=== PATIENT | male | born 1990 | race Two or more races ===

== ENCOUNTER 2023-02-13 14:53 | Emergency (ER) | payer BC, SELFPAY ==
[2023-02-13 15:09] VITALS: BP 123/73; PULSE 81; RESP 16; TEMP 35.9; O2SAT 97; BMI 22.4
--- NOTE | 2023-02-13 15:09 | ED_ITS ---
HPI - General Adult General Chief complaint: Urogenital-Male <RADHA Oconnor - Last Filed: 02/13/23 15:10> Stated complaint: STD <RADHA Oconnor - Last Filed: 02/13/23 15:10> Time Seen by Provider: 02/13/23 16:29 <RADHA Oconnor - Last Filed: 02/13/23 15:10> History of Present Illness HPI narrative: Patient complains of STD exposure, his girlfriend told him he had been exposed to chlamydia, he denies any symptoms no burning with urination no di scharge no sores no lesions, and feels in his normal state of health <RADHA Gonzales - Last Filed: 02/13/23 16:58> Related Data Allergies/adverse reactions: Allergies Allergy/AdvReac Type Severity Reaction Status Date / Time No Known Allergies Allergy Verified 02/13/23 15:10 <RADHA Oconnor - Last Filed: 02/13/23 15:10> [facility] Past Medical History Source: nursing notes reviewed <RADHA Gonzales - Last Filed: 02/13/23 16:58> Social History Social History: Social History Advance Directives: No Advance Directives Information Provided: No <RADHA Oconnor - Last Filed: 02/13/23 15:10> Physical Exam ED Vital Signs: Vital Signs - 24 hr 02/13/23 15:09 Temperature 96.6 F L Pulse Rate 81 Respiratory Rate 16 Blood Pressure 123/73 Pulse Oximetry 97 Oxygen Delivery Method Room Air BMI result Body Mass Index 22.4 <RADHA Oconnor - Last Filed: 02/13/23 15:10> Vital Signs - 24 hr 02/13/23 15:09 Temperature 96.6 F L Pulse Rate 81 Respiratory Rate 16 Blood Pressure 123/73 Pulse Oximetry 97 Oxygen Delivery Method Room Air BMI result Body Mass Index 22.4 <RADHA Gonzales - Last Filed: 02/13/23 16:58> General appearance is no acute distress The pharynx is clear no redness swelling or exudate Neck is supple The abdomen soft nontender Genital exam no testicular swelling no discharge no lesions no sores, normal exam <RADHA Gonzales - Last Filed: 02/13/23 16:58> Course Course Course Narrative: RME performed by Shonda Harvey PA-C. Patient is a 32 year old assigned male at presenting to the emergency department for STI testing. Urine ordered. Patient placed back in the waiting room pending room availability and results. <RADHA Oconnor - Last Filed: 02/13/23 15:10> RME performed by Shonda Harvey PA-C. Patient is a 32 year old assigned male at presenting to the emergency department for STI testing. Urine ordered. Patient placed back in the waiting room pending room availability and results. Patient is treated with Rocephin and Zithromax after exposure to chlamydia, he will be called if chlamydia test is positive and will do a full course of doxycycline as well if test is positive <RADHA Gonzales - Last Filed: 02/13/23 16:58> Discharge Plan Discharge Clinical Impression: Exposure to STD <RADHA Oconnor Last Filed: 02/13/23 15:10> Patient Disposition: Home, Self-Care <RADHA Oconnor - Last Filed: 02/13/23 15:10> Additional Instructions: We treated for possible STD with Rocephin and Zithromax If you test positive for chlamydia we will call you and prescribe a longer course of antibiotic Follow with your doctor or [facility] for further testing Return any time any worse condition or any concerns <RADHA Oconnor Last Filed: 02/13/23 15:10>
[2023-02-13 16:59] LABS: CT PCR NOT DETECTED (Not Detect.); NG PCR NOT DETECTED (Not Detect.)
[2023-02-13] MEDS: cefTRIAXone sodium 500 MG, Lidocaine HCl 1 % MPF 1 ML IM (17:07)
[2023-02-13] MEDS: Azithromycin 500 MG TABLET 1000 MG PO (17:07)
== END 2023-02-13 17:13 | disposition home or self-care (01) ==
PROVIDERS: Physician Assistant Medical; Emergency Provider Emergency Medicine
DX: Z20.2 Contact with and (suspected) exposure to infections with a predominantly sexual mode of transmission (principal)
CPT/HCPCS: 0353U; 96372; 99282; 99284; J0696

== ENCOUNTER 2023-06-16 13:25 | Emergency (ER) | payer BC, SELFPAY ==
[2023-06-16 13:56] VITALS: BP 126/71; PULSE 77; RESP 18; TEMP 36.6; O2SAT 98; BMI 21.5
--- NOTE | 2023-06-16 13:57 | ED.GENADULT ---
HPI - General Adult General Chief complaint: Extremity Injury, Lower Stated complaint: Blister on R foot Source: patient Mode of arrival: ambulatory Limitations: no limitations History of Present Illness HPI narrative: Patient is a 32 year old healthy male presenting with complaint of a blister on his right foot that has been there for more than a month. He states that it is painful when putting on his shoe. No numbness, no tingling, no injury, no fevers, no chills. Related Data Previous Rx's Medication Instructions Recorded naproxen 500 mg tablet 500 mg PO BID #14 tabs 06/16/23 Allergies Allergy/AdvReac Type Severity Reaction Status Date / Time No Known Allergies Allergy Verified 02/13/23 15:10 Review of Systems Review of Systems: Constitutional : No Weight loss, No Fever, No Chills, No Fatigue, No Malaise ENT/Mouth : No sore throat, No Rhinorrhea Eyes: No Eye Pain, No Swelling, No Redness Cardiovascular : No Chest Pain, No SOB, No Dyspnea on Exertion, No Orthopnea, No Edema, No Palpitations Respiratory : No Cough, No Sputum, No Wheezing Gastrointestinal : No Nausea, No Vomiting, No Diarrhea, No Constipation, No abdominal Pain, No Hematochezia, No Melena Genitourinary : No Dysuria, No Urinary Frequency, No Hematuria, Musculoskeletal : No joint pain, No Myalgias, No Joint Swelling Skin : No Skin Lesions, No rash Neuro : No Weakness, No Numbness, No Dizziness, No Headache Psych : No Anxiety/Panic, No Depression All other systems reviewed and are negative Yes all other systems are reviewed and are negative FORMERLY [facility], 1928–1983 Past Medical History Attestation statement: The following information was validated with the patient. Source: old records reviewed and nursing notes reviewed Physical Exam ED Vital Signs: Vital Signs - 24 hr 06/16/23 13:56 Temperature 98 F Pulse Rate 77 Respiratory Rate 18 Blood Pressure 126/71 Pulse Oximetry 98 Oxygen Delivery Method Room Air BMI result Body Mass Index 21.5 VSS Appearance: Alert.? Oriented X3.? No acute distress.? Head: Normocephalic, atraumatic, no step-offs or deformities Eyes: Pupils equal, round and reactive to light.? CVS: Normal heart rate and rhythm.? Respiratory: No respiratory distress.? ? Skin: Skin warm and dry.? Normal skin color.? Normal skin turgor.? Extremities: No lower extremity edema.? No calf ttp. 5/5 strength to bilateral upper and lower extremities +corn on the right pinky toe, 2+ dorsalis pedis and posterior tibialis equal bilaterally Neuro: Oriented X 3.? No motor deficit.? No sensory deficit. CN 2-12 intact Course Course Course Narrative: This is an RME: Additional HPI, ROS, PE not included below will be deferred to primary provider. Patient is a 32 year old male presenting with a corn on his right foot. Plan: Refer to podiatry Reevaluation(s) Reevaluation #1: Will be discharged from waiting room. Patient referred to podiatry and he is currently on the phone with the office making an appointment. Educated patient on diagnosis and treatment plan, answered all question, patient verbalizes understanding. At this time patient will be discharged home, advised to return with new or worsening symptoms. Educated on worrisome signs and symptoms and when to return. At this time I feel comfortable discharge home. Time: 14:10 Medical Decision Making Medical Decision Making MDM Narrative: Patient is a 32 year old male presenting with a corn on his toe for weeks. PE with corn to right toe. Likely corn vs callous, no signs of necrotizing infection, threat to limb, neurovascular compromise. Differential Diagnosis Differential Diagnoses: The differential diagnosis associated with the presentation includes Likely corn vs callous, no signs of necrotizing infection, threat to limb, neurovascular compromise. Admission/Observation Consideration of admission/observation: Escalation of care including admission/observation considered No indication. Prescription Management I considered prescription management with: Pain Medication Core Measures AMI core measures followed: Yes Measure exclusions: not indicated Critical Care Time Critical Care Time Critical Care Time: No Discharge Plan Discharge Clinical Impression: Speculator of toe Patient Disposition: Home, Self-Care Additional Instructions: Take your medications as prescribed. If you were prescribed antibiotics today, it is important that you take your medication to their entirety, do not skip any doses, do not finish them early. Follow-up with your primary care provider this week. Return to the emergency department with new or worsening symptoms. Such as fevers, chills, chest pain, shortness of breath, nausea, vomiting, dizziness, headache, vision changes, lethargy In case of emergency call 911 Follow up with gathering machine feeder as soon as possible. Prescriptions: New naproxen 500 mg tablet 500 mg PO BID Qty: 14 0RF Referrals: Physician,None [Primary Care Provider] - 1 week Stand Alone Forms: Work/School Release
== END 2023-06-16 14:15 | disposition home or self-care (01) ==
PROVIDERS: Emergency Provider Emergency Medicine
DX: L84 Corns and callosities (principal); M79.671 Pain in right foot
CPT/HCPCS: 99282; 99283